=== PATIENT | female | born 1935 | race Caucasian/White ===

== ENCOUNTER → 2017-06-12 | Outpatient (CLI) | payer OTHER, MEDICARE ==
[~2017-06-12] VITALS: Ht 160 cm; Wt 55.6 kg
[~2017-06-12] MED LIST: ACCUPRIL; ACCUPRIL40 MG PO; ADULT LOW DOSE81 MG PO; AMBIEN 5 MG TABL5 M1 PO; AMLODIPINE BESY10 MG PO; ANAPROX DS550 MG PO; APAP500 PO; APAP650 PO; ARTIFICIAL TEA1 EACH OPHTHALMIC; ASACOL 400 MG400 M1 PO; ASACOL400 MG PO; ASPIR 8181 MG PO; BACLOFEN 10MG T10 M1 PO; BACLOFEN PO; BION TEARS OPHTHALMIC; BIOTIN1 GM PO; BIOTIN1 MG PO; BUDESONIDE EC3 MG PO; BYSTOLIC 5 MG5 M1 PO; BYSTOLIC10 MG PO; CALCIUM 600 +1 EAC1 PO; CALCIUM 600 +1 EAC5 PO; CALCIUM OYSTER500 MG PO; CENTRUM SILVER1 EAC5 PO; CEPACOL SORE T1 EAC7 PO; CILOSTAZOL 100100 M1 PO; CIPRO500 MG PO; CLARITIN10 MG PO; CLEAR EYES OP; CLOPIDOGREL75 MG PO; COLACE100 MG PO; COZAAR 50 MG TA50 M2 PO; CYMBALTA30 MG PO; DEPAKOTE250 MG PO; DIPHENOXYLATE/A1 TA1 PO; ERGOCALCIF50000 UNIT PO; EXFORGE PO; FIORICET 50-321 EACH PO; FLUCONAZOLE 10100 MG PO; HOME MEDICATION PO; HYDROCODON-ACE1 EAC7; HYDROCODONE-AP1 EAC6 PO; INDAPAMIDE1.25 MG PO; KETOPROFEN75 MG PO; LEVOTHYROXIN0.112 M1 PO; LOPERAMIDE 2 MG2 M1 PO; LOTEMAX OPHTHALMIC; LOTEMAX5 ML OPHTHALMIC; MACROBID 100 M100 M2 PO; MACRODANTIN100 MG PO; MELATONIN10 M1 PO; METAMUCIL FIBE3.4 GM PO; METAMUCIL0.52 GM PO; MINIPRIN81 MG PO; MIRALAX17 GM PO; MULTIVITAMIN W1 EAC5 PO; MULTIVITAMIN WITH MI PO; NITROFURANTOIN100 MG PO; NORCO 5-325 TA1 EACH PO; NYSTATIN100000 UNI PO; PAXIL10 MG; PEPCID20 MG PO; PEPTO-BISM262 MG/15 PO; PEPTO-BISMOL262 M1; PERCOCET 5-3251 EACH PO; PHENADOZ25 MG; PHENERGAN 25 MG25 M1 PO; PLAVIX 75 MG TA75 MG PO; PREDNISONE 5 MG5 M1 PO; PREMARIN42.5 GM VG; PRESERVISION A1 EACH PO; PREVALITE PACKET4 GM PO; PROBIOTIC1 EAC1 PO; PROTONIX40 M1 PO; PROTONIX40 M2 PO; PROZAC 10 MG CA10 M1 PO; PROZAC 10 MG CA10 MG PO; PROZAC20 MG PO; RESTASIS1 EACH OP; RESTASIS1 EACH OPHTHALMIC; SIMVASTATIN40 MG PO; SYNTHROID100 MCG PO; SYNTHROID75 MCG; SYNTHROID75 MCG PO; TEKTURNA300 MG PO; TENEX1 MG PO; TRAMADOL 50 MG50 MG PO; ULTRAM 50MG TAB50 MG PO; UNICOMPLEX M TA1 TA1 PO; VIBRAMYCIN 100100 MG PO; VITAMIN C1000 MG PO; VITAMIN C500 M1 PO; VOLTAREN GEL 1100 G2 TOP; ZANAFLEX2 M1 PO; ZANAFLEX4 MG PO; ZONEGRAN50 MG PO; ZONISAMIDE 100100 M1 PO; [UNRECOGNIZED DRUG - OTHER] OPHTHALMIC; [UNRECOGNIZED DRUG - OTHER] OPHTHALMIC; [UNRECOGNIZED DRUG - OTHER] PO; [UNRECOGNIZED DRUG - OTHER] PO
--- NOTE | ~2017-06-12 | HPC ---
[facility] [place] [address] [place] [address] PAIN MANAGEMENT CONSULTATION Name: REJI NEAL Room #: REG [facility] Rob.#: [id number] Admission: 06/12/17 Attend Phys: Adam Whitlock MD Discharge: Date of : 33 Report #: [id number] THIS REPORT FOR: //name// CC: Jayda Whitlock DATE OF SERVICE: 06/12/2017 Followup visit for recurring low back pain. The patient returns to the pain clinic today with her daughter, Gary Soto, one of our patients. I last saw the patient over a year ago. At that time, she presented with pain bilaterally in the area of the sacroiliac joint. She received bilateral injections, was sent to physical therapy and I have not seen her since. About 2 weeks ago, she was in her normal state of health. She was not using a walker. She was living in assisted living at a local facility. She turned to get something out of the refrigerator and had sudden onset of similar pain in the sacroiliac joint. Initially, it was on one side, but now it is similar on both with localized tenderness. She has classic findings of difficulty getting up and down out of a chair, bending forwards and straightening. She has no radicular symptoms whatsoever. She is unable to take nonsteroidal anti-inflammatory drugs and does have at her home hydrocodone 5/325, which she has been taking up to a maximum of 4 tablets per day. She has taken this before. She also takes two other centrally acting drugs one is Prozac 20 mg, which she is taking chronically and the third is tizanidine. There is no question that a combination of the tizanidine in addition to the hydrocodone is too sedating. Her daughter notices that she slurs her words and she is fearful that she may fall. Hydrocodone 5 mg although not terribly strong drug may also be too much for her and at the request of the daughter, I have encouraged the patient to use a half a tablet, which can be repeated at 4 hour intervals. She can combine that with a single 325 mg Tylenol tablet. We discussed the opioid risks, benefits and side effects. She does have some constipation. We talked about nonpharmacologic measures. A good portion of the discussion was also focused on exercise. While her daughter is a very avid cafeteria counter attendant, I think that we need to focus at this point on keeping it simple and having her mother develop a good steady program of walking. Anything that she does above that will be of benefit, but before she can do any of those other things she must become more mobile with walking. She is ____. PQRS: Blood pressure is 117/58, heart rate 76 and respirations 16. Her BMI is 21.7. She does have osteoarthritis involving hips and knees. She has significant vasculopathy and has had aortobifemoral in 2015. She does not smoke. She does not use alcohol. I do not provide opioids. They are provided [address] [address] PAIN MANAGEMENT CONSULTATION Name: REJI NEAL Room #: REG [facility] Gabriel#: [id number] Admission: 06/12/17 Attend Phys: Adam Whitlock MD Discharge: Date of : 33 Report #: [id number] by her primary care physician. We discussed the opioid risks. She is a fall risk at this time and uses a walker. Precautions were provided. All medications were reviewed and reconciled. PHYSICAL EXAMINATION: She has difficulty moving from sitting to standing position. It is hard for her to straighten up. She has very well localized pain overlying each sacroiliac joint in its upper portion. Pain is worse with bending and stretching. She has positive Shyanne. There is no radiculopathy. Her gait is slow and measured. She uses a walker for stability. IMPRESSION: 1. Bilateral sacroiliitis, sacroiliac joint pain. 2. Vasculopathy, status post aortobifemoral. 3. Hypertension on amlodipine. PLAN: 1. Bilateral sacroiliac joint injections under fluoroscopic guidance. 2. Recommendation regarding medication, discontinue tizanidine due to side effects, reduce hydrocodone to one half tablet q. 4 hours. Side effects of constipation were discussed and reviewed. Safeguarding of medication. 3. Daily walking program under guidance of her daughter. Additional exercise can be added as tolerated. PROCEDURE: Bilateral sacroiliac injection. She was taken to the fluoroscopic suite, placed prone and skin prepped with ChloraPrep. Skin anesthetized first on the right. Skin was anesthetized and 25-gauge needle advanced in the inferior posterior aspect of the joint through the capsule. Excellent arthrogram was obtained. It was then followed by 1 mL of 1% lidocaine mixed with 40 mg of triamcinolone. Needle was removed. C-arm was repositioned to the left. Again good positioning identified the joint and posteriorly entered so, although not quite as clearly as on the right. A 25-gauge needle was advanced into the joint. Partial arthrogram was obtained. I injected a portion of 0.25% bupivacaine and 20 mg of triamcinolone into the joint and then the additional 20 mg and two more mL of 0.25% bupivacaine was injected along the sacroiliac joint ligaments posteriorly. She tolerated the injections well. She was observed for a short time and discharged. No medications were ordered. I will see her back in a month as needed. <ELECTRONICALLY SIGNED> By: Adam Whitlock MD 07/12/17 1640 1139 0358 Adam Whitlock MD /nt
[2017-06-12 10:21] VITALS: BP 117/58
== END | disposition home or self-care (01) ==
LOC: PAIN 06:15 → EDBD 07:00
DX: M53.3 Sacrococcygeal disorders, not elsewhere classified (principal); M46.1 Sacroiliitis, not elsewhere classified; M31.8 Other specified necrotizing vasculopathies; I10 Essential (primary) hypertension; M17.0 Bilateral primary osteoarthritis of knee; M16.0 Bilateral primary osteoarthritis of hip; Z88.0 Allergy status to penicillin; Z88.6 Allergy status to analgesic agent; Z88.8 Allergy status to other drugs, medicaments and biological substances; Z79.899 Other long term (current) drug therapy; Z79.82 Long term (current) use of aspirin; Z79.891 Long term (current) use of opiate analgesic; Z98.890 Other specified postprocedural states

== ENCOUNTER → 2017-06-29 | Outpatient (CLI) | payer OTHER, MEDICARE ==
[~2017-06-29] VITALS: Ht 157.5 cm; Wt 56.5 kg
--- NOTE | ~2017-06-29 | HPC ---
[facility] [place] [address] [place] [address] PAIN MANAGEMENT CONSULTATION Name: REJI NEAL Room #: REG Delfina Rivas.#: [id number] Admission: 06/29/17 Attend Phys: Adam Whitlock MD Discharge: Date of : 33 Report #: [id number] THIS REPORT FOR: //name// CC: Jayda Whitlock DATE OF SERVICE: 06/29/2017 Followup visit for management of chronic low back pain. The patient was just seen in the pain clinic about 2 weeks ago. I had some phone calls with her daughter and a second daughter is with her today to discuss her medication management. I have also referred to the family a very excellent book, "Being Mortal" by Beltran Armenta. I think this book will provide important information to help the family understand what is important in helping their mother manage in her assisted living location. There is a lot of control issues going on here. Ultimately, it comes down to what medication works effectively and there has been some argument over mere 2.5 mg of hydrocodone. Today, it appears that they have come to resolve the issue that her mother does better within four hydrocodone 5 mg tablets. This seems like much ____ over nothing, but it is important I think for families from a psychological and emotional standpoint as well as physical one. Her mother has no significant side effects with a full tablet it appears and so we resolved to let her take the full tablet, which provides her with some control over medication. Today, we reviewed the CDC guidelines once again. All of the issues associated with the PQRS which were reviewed on 06/12/2017 are unchanged. I will not review them again here, they are on the chart from just 2 weeks ago. IMPRESSION: 1. Bilateral sacroiliitis with sacroiliac joint pain. 2. Vasculopathy status post aortobifemoral. 3. Hypertension. 4. Management of opioid medication under terms of written opioid agreement. PLAN: Medications were renewed with the new dosing and provided for 4 and 8 weeks. Her maximum daily dose will be 4 hydrocodone tablets 5 mg, which would be 20 MME. Her average dose will be 3 tablets or 15 mg of hydrocodone, 15 MME. See her in 3 months. <ELECTRONICALLY SIGNED> By: Adam Whitlock MD 07/12/17 1640 0958 1135 Adam Whitlock MD /nt
[2017-06-29 10:36] VITALS: BP 153/71
== END ==
LOC: PAIN 09:21
DX: M46.1 Sacroiliitis, not elsewhere classified (principal); M31.8 Other specified necrotizing vasculopathies; I10 Essential (primary) hypertension; F11.90 Opioid use, unspecified, uncomplicated

== ENCOUNTER → 2017-08-14 | Outpatient (CLI) | payer OTHER, MEDICARE ==
[~2017-08-14] VITALS: Ht 157.5 cm; Wt 56.4 kg
[~2017-08-14] MED LIST changes: -ARTIFICIAL TEA1 EACH OPHTHALMIC; +ARTIFICIAL TEAR15 M3; -BUDESONIDE EC3 MG PO; -COLACE100 MG PO; -ERGOCALCIF50000 UNIT PO; -HOME MEDICATION PO; -LOPERAMIDE 2 MG2 M1 PO; -MACROBID 100 M100 M2 PO; -MELATONIN10 M1 PO; -METAMUCIL FIBE3.4 GM PO; -MIRALAX17 GM PO; -NYSTATIN100000 UNI PO; -PEPCID20 MG PO; -PEPTO-BISM262 MG/15 PO; -PREDNISONE 5 MG5 M1 PO; -PREVALITE PACKET4 GM PO; -PROBIOTIC1 EAC1 PO; -SYNTHROID75 MCG PO; -VITAMIN C1000 MG PO; +VITAMIN C500 M1; -VITAMIN C500 M1 PO; -VOLTAREN GEL 1100 G2 TOP
--- NOTE | ~2017-08-14 | HPC ---
[facility] [address] [address] PAIN MANAGEMENT CONSULTATION Name: REJI NEAL Room #: REG [facility] M.R.#: [id number] Admission: 08/14/17 Attend Phys: Adam Whitlock MD Discharge: Date of : 33 Report #: [id number] THIS REPORT FOR: //name// CC: Jayda Whitlock DATE OF SERVICE: 08/14/2017 Followup visit for chronic pain, multiple generators. HISTORY OF PRESENT ILLNESS: The patient is here today with her daughter, Emily. She is here to review pain related to a recent fall and also to discuss her chronic low back pain. She was in Dr. Jimenez's office and fell off the table during the middle of a test. She landed on her left side. The fall sounds as though she went to the floor fairly gently, but she has complained of pain in her rib cage and over the left hip following that fall. She has had no evidence of fracture and no specific x-rays have taken. She remains ambulatory with only mild increases in pain. She has always had sacroiliac joint pain. Today, she complains of a bit more pain around the greater trochanter overlying the trochanteric bursa and into the hip. We have had many discussions about medication. Today, we focused on her maximum daily dose of hydrocodone, which would be 20 mg. She has the ability to take one half to one tablet of hydrocodone up to 4 times daily for a total of 20. There has been some challenge in figuring out the simple order because her schedule 2 medications at [facility] are released by the nursing staff. They were unable to split a tablet and this has led to some back and forth. We have settled on 5 mg 4 times daily at this time and there does not seem to be much disagreement between the patient and daughter today. We have reviewed the CDC guidelines, all issues associated with prescribing and they understand the importance of taking medication carefully and managing side effects. I think it is reasonable to use medication in this setting given our limited ability to control pain, otherwise. She has responded favorably to sacroiliac joint injections in the past; however, her pain today seems to be different, more involving the outer trochanter as well as some radiation into the gluteus muscle. PHYSICAL EXAMINATION: Blood pressure is 148/65, heart rate is 76, respirations 16, O2 sat 100%. She is able to move from a wheelchair independently to a standing position. She walks with unstable gait. Her daughter trailing her to make sure that she does not fall. Examination of the spine reveals no bruising. There is no bruising along the rib cage on the left. There is mild tenderness along the rib cage. There is tenderness along the greater trochanter. She has pain with hip internal and external rotation. There is some bruising in the right lamb overlying the tibia and a small skin tear, which is covered by a [address] [address] PAIN MANAGEMENT CONSULTATION Name: REJI NEAL Room #: REG [facility] Gabriel#: [id number] Admission: 08/14/17 Attend Phys: Adam Whitlock MD Discharge: Date of : 33 Report #: [id number] Band-Aid. IMPRESSION: 1. Bilateral chronic arthritic back pain with spondylosis and sacroiliitis. 2. Recent fall resulting in pain and tenderness overlying the trochanteric bursa. 3. Hypertension. 4. Arteriosclerosis with history of aortobifemoral graft. 5. Management of opioid medications under terms of written agreement. PLAN: 1. I renewed her medicines with a discussion about safeguarding and using the lowest effective dose managing side effects appropriately. 2. Trochanteric bursa injection. She was placed in the right lateral decubitus position, skin was prepped overlying the trochanter. A 25-gauge needle was used to infiltrate 4 mL of 0.5% bupivacaine and 40 mg of triamcinolone. She tolerated the procedure well. Pain was reduced at discharge. Follow up in 3 months for medication management. <ELECTRONICALLY SIGNED> By: Adam Whitlock MD 08/21/17 1408 1612 1627 Adam Whitlock MD /nt
[2017-08-14 12:57] VITALS: BP 148/65
== END | disposition home or self-care (01) ==
LOC: PAIN 07:21
DX: M70.62 Trochanteric bursitis, left hip (principal)

== ENCOUNTER → 2017-09-01 | Outpatient (CLI) | payer OTHER, MEDICARE ==
--- NOTE | ~2017-09-01 | HPC ---
[facility] [place] [address] [address] PAIN MANAGEMENT CONSULTATION Name: REJI NEAL Room #: REG [facility]..#: [id number] Admission: 09/01/17 Attend Phys: Kurt Rosas DO Discharge: Date of : 33 Report #: [id number] THIS REPORT FOR: //name// CC: Jayda Rosas DATE OF SERVICE: 09/01/2017 PROCEDURE: Lumbar epidural injection under fluoroscopy. The patient is a pleasant 82-year-old female typically treated by Dr. Adam Whitlock for ongoing axial back pain, history of trochanteric bursitis, lumbosacral spondylosis without myelopathy and lumbar radiculopathy. It has been managed with hydrocodone low dose 5 mg t.i.d. to q.i.d. Last visit, 08/14/2017, had trochanteric injection, left hip with excellent improvement of pain. She notes, however, she is having increasing radicular pain in right sciatic distribution. She denies antecedent trauma and overuse. Notes symptoms have been exacerbated with standing, walking and bending. Pain started in the groin has radiated down the lateral aspect of the leg into the foot. She rates it a 4 on VAS with sitting, 10/10 with walking. PHYSICAL EXAMINATION: Shows 82-year-old female, moderately thin with a BMI of about 22 kilograms per meter squared. Vital signs stable as noted in the EMR. Has significant decreased right leg strength to hip flexion, lower extremity extension does exacerbate pain. Positive straight leg raise at 30 degrees. ASSESSMENT: Symptomatic lumbar radiculopathy, clinical exam and history. RECOMMENDATION: Epidural injection under fluoroscopy today at L5-S1. Follow up with Dr. Whitlock for ongoing medical care in 3 weeks. PROCEDURE: Lumbar epidural injection under fluoroscopy. PROCEDURE NOTE: After both written and informed consent to include risk of spinal cord damage, increased pain, weakness and dural puncture, the patient was taken to the fluoroscopy suite, placed in the prone position. After sterile prep and drape, a skin wheal with lidocaine was raised. A 22-gauge epidural Tuohy needle was inserted in the midline at L5-S1 with good loss to resistance. Negative aspiration for cerebrospinal fluid or blood was noted. Then 1 mL of Omnipaque under biplanar fluoroscopy showed good spread within the epidural space. This was followed with 80 mg of triamcinolone plus 1 mL of 1.5% preservative-free Xylocaine, 0.5 mL Xylocaine was then injected to flush the [facility] [address] [place] [address] PAIN MANAGEMENT CONSULTATION Name: REJI NEAL [id number] Admission: 09/01/17 Attend Phys: Kurt Rosas DO Discharge: Date of : 33 Report #: [id number] needle; it was removed. The patient was monitored for an appropriate period of time and discharged in good and stable condition. <ELECTRONICALLY SIGNED> By: Kurt Rosas DO 09/02/17 0954 [id number] 2038 Kurt Rosas DO /nt
[2017-09-01 09:22] VITALS: BP 136/65
== END | disposition home or self-care (01) ==
LOC: PAIN 07:04
DX: M54.16 Radiculopathy, lumbar region (principal); M47.816 Spondylosis without myelopathy or radiculopathy, lumbar region; Z79.899 Other long term (current) drug therapy

== ENCOUNTER → 2017-09-25 | Outpatient (CLI) | payer OTHER, MEDICARE ==
[~2017-09-25] VITALS: Ht 157.5 cm; Wt 56.4 kg
[~2017-09-25] MED LIST changes: +ARTIFICIAL TEA1 EACH OPHTHALMIC; -ARTIFICIAL TEAR15 M3; +BUDESONIDE EC3 MG PO; +COLACE100 MG PO; +LOPERAMIDE 2 MG2 M1 PO; +MACROBID 100 M100 M2 PO; +MELATONIN10 M1 PO; +MIRALAX17 GM PO; +NYSTATIN100000 UNI PO; +PEPCID20 MG PO; +PEPTO-BISM262 MG/15 PO; +SYNTHROID75 MCG PO; -VITAMIN C500 M1; +VITAMIN C500 M1 PO
--- NOTE | ~2017-09-25 | HPC ---
[facility] [place] [address] [address] PAIN MANAGEMENT CONSULTATION Name: REJI NEAL [facility] [id number] Admission: 09/25/17 Attend Phys: Adam Whitlock MD Discharge: Date of : 33 Report #: [id number] THIS REPORT FOR: //name// CC: Jayda Whitlock DATE OF SERVICE: 09/25/2017 Followup visit for chronic back pain with radiculopathy. The patient returns to clinic today and her leg pain has improved after the epidural provided by Dr. Rosas. She still has pain across her lumbosacral segment that she scores as a 5 to 10. She has been taking medication. The goal is to lower her reliance on medicine. Pain is across her low back and does not radiate at this time. Pain is worse with back extension. She has marked spondylitic changes noted. She had a tooth pulled today. It was not infected. She is afebrile. MEDICATIONS: Reviewed and reconciled. She is not on a blood thinner. PHYSICAL EXAMINATION:' VITAL SIGNS: Blood pressure 137/58, heart rate 75 and respirations 20. She is 5 feet, 2 inches, 124 pounds and BMI 22.7. HEENT: Examination of the mouth reveals clean removal of tooth in the upper left. It appears to be an incisor. There is no redness or inflammation. MUSCULOSKELETAL: Examination of the low back reveals tenderness across the lumbosacral segment, worse with back extension and some pain also with flexion. Straight leg raising is performed without any pain in the leg today indicating improvement following her epidural injection. IMPRESSION: Lumbar spondylosis with facet arthropathy. RECOMMENDATIONS: I will proceed today with facet injections under fluoroscopic guidance, L4-L5 bilaterally, L5-S1. Potential risks and benefits have been discussed. I think the likelihood of infection risk is low given the clean removal of her tooth and will be outside of the spinal canal. PROCEDURE: The patient was taken to the fluoroscopic suite, placed prone, skin prepped with ChloraPrep. Skin anesthetized with 1% lidocaine; 25-gauge needles were advanced first on the right into the L4-L5 and L5-S1 facet capsule. No Isovue was used. After negative aspiration, I injected each needle with 1 mL of 0.5% bupivacaine mixed with 10 mg of triamcinolone. Tracy were removed. C-arm was moved to the left and mirror image injections were performed at L4-L5 and L5-S1 in a similar fashion. She tolerated the procedure [place] [address] PAIN MANAGEMENT CONSULTATION Name: REJI NEAL Room #: REG [facility].#: [id number] Admission: 09/25/17 Attend Phys: Adam Whitlock MD Discharge: Date of : 33 Report #: [id number] good condition in recovery room and discharged after a short stay. Follow up as needed. She had prescriptions written by Dr. Rosas at last visit. No prescriptions are necessary at this time. <ELECTRONICALLY SIGNED> By: Adam Whitlock MD 10/02/17 1711 1507 0557 Adam Whitlock MD /nt
[2017-09-25 14:28] VITALS: BP 137/58
== END | disposition home or self-care (01) ==
LOC: PAIN 07:26
DX: M47.816 Spondylosis without myelopathy or radiculopathy, lumbar region (principal); M46.96 Unspecified inflammatory spondylopathy, lumbar region; Z88.0 Allergy status to penicillin; Z88.2 Allergy status to sulfonamides; Z88.8 Allergy status to other drugs, medicaments and biological substances; Z79.899 Other long term (current) drug therapy; Z79.82 Long term (current) use of aspirin

== ENCOUNTER 2017-10-18 18:33 | Inpatient (IN) | payer OTHER, MEDICARE ==
[~2017-10-18] VITALS: Ht 157.5 cm; Wt 55.3 kg
[~2017-10-18 18:33] MED LIST changes: -COLACE100 MG PO; -LOPERAMIDE 2 MG2 M1 PO; -MACROBID 100 M100 M2 PO; -MELATONIN10 M1 PO; -MIRALAX17 GM PO; -PEPCID20 MG PO; -PEPTO-BISM262 MG/15 PO; -SYNTHROID75 MCG PO
[2017-10-18 18:34] VITALS: BP 141/69
[2017-10-18] MEDS ORDERED: MIRALAX17 GM PO (19:18)
[2017-10-18 20:00] LABS: URINE BILIRUBIN NEGATIVE (Negative); URINE BLOOD NEGATIVE (Negative); URINE CLARITY CLEAR; URINE COLOR YELLOW; URINE GLUCOSE-RANDOM* NEGATIVE (Negative); URINE KETONES NEGATIVE (Negative); URINE LEUKOCYTES-REFLEX NEGATIVE (Negative); URINE NITRITE-REFLEX NEGATIVE (Negative); URINE PROTEIN (DIPSTICK) TRACE (Negative); URINE UROBILINOGEN 0.2 E.U./dl (0.2-1.0)
[2017-10-18 21:31] LABS: ABSOLUTE NEUTROPHILS 8.2 thou/uL (1.4-8.2); BASOPHILS 0.6 % (0.0-2.0); EOSINOPHILS 1.1 % (0.0-3.0); HEMATOCRIT 33.6 % (37.0-47.0); HEMOGLOBIN 11.2 gm/dL (12.0-15.0); LYMPHOCYTES 18.9 % (24.0-44.0); MCH 32.7 pg (26.0-34.0); MCHC 33.4 g/dL (28.0-37.0); MCV 97.8 fL (80.0-100.0); MONOCYTES 10.2 % (1.0-8.0); PLATELET COUNT 353 thou/uL (150-400); POLYS 69.2 % (36.0-66.0); RBC 3.43 mil/uL (4.20-5.00); RDW 14.5 % (10.5-14.5); WBC 11.9 thou/uL (4.0-11.0)
[2017-10-18 21:38] LABS: CALCIUM 9.7 mg/dL (8.5-10.1); CREATININE 0.8 mg/dL (0.6-1.0); POTASSIUM 4.2 mmol/L (3.5-5.1)
[2017-10-18 22:00] VITALS: BP 138/62
[2017-10-18 22:16] VITALS: BP 166/63
[2017-10-18] MEDS ORDERED: SYNTHROID75 MCG PO (22:16)
[2017-10-18] MEDS ORDERED: PEPTO-BISM262 MG/15 PO (22:19)
[2017-10-18] MEDS ORDERED: PEPCID20 MG PO (22:20)
[2017-10-18] MEDS ORDERED: MELATONIN10 M1 PO (22:21)
[2017-10-18] MEDS ORDERED: MACROBID 100 M100 M2 PO (22:21)
[2017-10-18] MEDS ORDERED: LOPERAMIDE 2 MG2 M1 PO (22:22)
[2017-10-18] MEDS ORDERED: AMLODIPINE BESY10 MG PO (22:23)
[2017-10-19 05:50] LABS: HEMATOCRIT 32.4 % (37.0-47.0); HEMOGLOBIN 10.8 gm/dL (12.0-15.0); MCH 32.7 pg (26.0-34.0); MCHC 33.3 g/dL (28.0-37.0); MCV 98.1 fL (80.0-100.0); RBC 3.3 mil/uL (4.20-5.00); RDW 14.6 % (10.5-14.5); WBC 8.4 thou/uL (4.0-11.0)
[2017-10-19 05:59] LABS: CALCIUM 9.4 mg/dL (8.5-10.1); CREATININE 0.7 mg/dL (0.6-1.0); POTASSIUM 3.9 mmol/L (3.5-5.1)
[2017-10-19 06:46] VITALS: BP 136/62
[2017-10-19 07:53] VITALS: BP 132/59
[2017-10-19 19:18] VITALS: BP 140/68
[2017-10-20 03:50] VITALS: BP 141/58
[2017-10-20 07:39] VITALS: BP 137/55
[2017-10-20] MEDS ORDERED: COLACE100 MG PO (14:27)
[2017-10-20 14:55] VITALS: BP 137/55
[2017-10-20 15:53] VITALS: BP 135/52
== END 2017-10-20 18:24 | disposition home health service (06) | DRG 516 ==
LOC: ER 18:33 → EROBS 20:34 → 4W 20:34 → ENTRNSPT 10-20 16:06 → 4W 10-20 18:24
PROVIDERS: Nurse Practitioner Family; Physician Assistant
PROC: 0QS03ZZ Reposition Lumbar Vertebra, Percutaneous Approach (ICD-10-PCS; principal; 2017-10-19)
PROC: 0QU03JZ Supplement Lumbar Vertebra with Synthetic Substitute, Percutaneous Approach (ICD-10-PCS; principal; 2017-10-19)
DX: M48.56XA Collapsed vertebra, not elsewhere classified, lumbar region, initial encounter for fracture (principal); E87.1 Hypo-osmolality and hyponatremia; G89.29 Other chronic pain; M54.5 Low back pain; M25.552 Pain in left hip; M25.551 Pain in right hip; M19.90 Unspecified osteoarthritis, unspecified site; I25.10 Atherosclerotic heart disease of native coronary artery without angina pectoris; E03.9 Hypothyroidism, unspecified; H40.9 Unspecified glaucoma; G43.909 Migraine, unspecified, not intractable, without status migrainosus; K59.00 Constipation, unspecified; F32.9 Major depressive disorder, single episode, unspecified; I73.9 Peripheral vascular disease, unspecified; M85.80 Other specified disorders of bone density and structure, unspecified site; I65.29 Occlusion and stenosis of unspecified carotid artery; Z79.891 Long term (current) use of opiate analgesic; Z88.6 Allergy status to analgesic agent; Z88.0 Allergy status to penicillin; Z88.2 Allergy status to sulfonamides; Z88.8 Allergy status to other drugs, medicaments and biological substances; Z90.711 Acquired absence of uterus with remaining cervical stump; Z95.5 Presence of coronary angioplasty implant and graft; Z86.73 Personal history of transient ischemic attack (TIA), and cerebral infarction without residual deficits; Z79.82 Long term (current) use of aspirin; Z79.899 Other long term (current) drug therapy
CPT/HCPCS: 10040

== ENCOUNTER → 2017-11-02 | Outpatient (CLI) | payer OTHER, MEDICARE ==
[~2017-11-02] MED LIST changes: +COLACE100 MG PO; +LOPERAMIDE 2 MG2 M1 PO; +MACROBID 100 M100 M2 PO; +MELATONIN10 M1 PO; +MIRALAX17 GM PO; +PEPCID20 MG PO; +PEPTO-BISM262 MG/15 PO; +SYNTHROID75 MCG PO
== END ==
LOC: MRI 10:48
DX: M47.896 Other spondylosis, lumbar region (principal); M48.061 Spinal stenosis, lumbar region without neurogenic claudication; M51.27 Other intervertebral disc displacement, lumbosacral region

== ENCOUNTER → 2017-12-12 | Outpatient (CLI) | payer OTHER, MEDICARE | LOC: MRI 14:04 | DX: S32.010A Wedge compression fracture of first lumbar vertebra, initial encounter for closed fracture (principal); S32.020A Wedge compression fracture of second lumbar vertebra, initial encounter for closed fracture; S32.040A Wedge compression fracture of fourth lumbar vertebra, initial encounter for closed fracture; S32.050A Wedge compression fracture of fifth lumbar vertebra, initial encounter for closed fracture; X58.XXXA Exposure to other specified factors, initial encounter; M47.816 Spondylosis without myelopathy or radiculopathy, lumbar region; Y93.89 Activity, other specified; Y92.89 Other specified places as the place of occurrence of the external cause; Y99.8 Other external cause status; Z98.890 Other specified postprocedural states ==

== ENCOUNTER → 2018-01-01 | Outpatient (CLI) | payer OTHER, MEDICARE | LOC: MRI 07:26 | DX: M51.26 Other intervertebral disc displacement, lumbar region (principal); Z98.890 Other specified postprocedural states ==

== ENCOUNTER 2019-03-02 13:07 | Emergency (ER) | payer OTHER, MEDICARE ==
[~2019-03-02] VITALS: Ht 160 cm; Wt 54.4 kg
[~2019-03-02 13:07] MED LIST changes: +ERGOCALCIF50000 UNIT PO; +HOME MEDICATION PO; +METAMUCIL FIBE3.4 GM PO; +PREDNISONE 5 MG5 M1 PO; +PREVALITE PACKET4 GM PO; +PROBIOTIC1 EAC1 PO; +VITAMIN C1000 MG PO; +VOLTAREN GEL 1100 G2 TOP
[2019-03-02] MEDS ORDERED: BACLOFEN5 MG PO (15:08)
[2019-03-02 16:14] VITALS: BP 156/74
[2019-03-18] MEDS ORDERED: MAGNESIUM400 MG PO (08:24)
[2019-03-18] MEDS ORDERED: CILOSTAZOL50 MG PO (08:25)
[2019-03-18] MEDS ORDERED: BIOTIN1000 MCG PO (08:26)
[2019-03-18] MEDS ORDERED: DURAGESIC1 EAC2 (08:28)
[2019-03-29] MEDS ORDERED: AMLODIPINE BESY10 MG PO (11:10)
[2019-03-29] MEDS ORDERED: ACIDOPHILUS LA1 EAC1 PO (11:11)
[2019-03-29] MEDS ORDERED: DICLOFENAC SOD50 MG PO (11:12)
[2019-03-29] MEDS ORDERED: DRIZALMA SPRINK60 MG PO (11:13)
[2019-03-29] MEDS ORDERED: LIDOCAINE PAIN1 EACH TOP (11:15)
[2019-03-29] MEDS ORDERED: OMEPRAZOLE 20 M20 M1 PO (11:16)
== END 2019-03-02 16:15 | disposition home or self-care (01) ==
LOC: ER 13:07
DX: S39.012A Strain of muscle, fascia and tendon of lower back, initial encounter (principal); I10 Essential (primary) hypertension; I25.10 Atherosclerotic heart disease of native coronary artery without angina pectoris; G43.909 Migraine, unspecified, not intractable, without status migrainosus; E78.00 Pure hypercholesterolemia, unspecified; E03.9 Hypothyroidism, unspecified; G89.29 Other chronic pain; Z90.711 Acquired absence of uterus with remaining cervical stump; Z86.2 Personal history of diseases of the blood and blood-forming organs and certain disorders involving the immune mechanism; Z88.0 Allergy status to penicillin; Z88.2 Allergy status to sulfonamides; Z88.5 Allergy status to narcotic agent; Z88.8 Allergy status to other drugs, medicaments and biological substances; X50.0XXA Overexertion from strenuous movement or load, initial encounter; Y92.89 Other specified places as the place of occurrence of the external cause; Y93.E2 Activity, laundry; Y99.8 Other external cause status

== ENCOUNTER → 2019-03-11 | Outpatient (CLI) | payer OTHER, MEDICARE ==
[~2019-03-11] MED LIST changes: +ACIDOPHILUS LA1 EAC1 PO; +BACLOFEN5 MG PO; +BIOTIN1000 MCG PO; +CILOSTAZOL50 MG PO; +DICLOFENAC SOD50 MG PO; +DRIZALMA SPRINK60 MG PO; +DURAGESIC1 EAC2; +LIDOCAINE PAIN1 EACH TOP; +MAGNESIUM400 MG PO; +OMEPRAZOLE 20 M20 M1 PO
== END ==
LOC: CAT 13:09
DX: M43.8X4 Other specified deforming dorsopathies, thoracic region (principal); M25.78 Osteophyte, vertebrae; M48.04 Spinal stenosis, thoracic region; M51.24 Other intervertebral disc displacement, thoracic region; N20.0 Calculus of kidney

== ENCOUNTER → 2019-03-13 | Outpatient (CLI) | payer OTHER, MEDICARE | LOC: MRI 12:28 | DX: M48.55XA Collapsed vertebra, not elsewhere classified, thoracolumbar region, initial encounter for fracture (principal); M51.25 Other intervertebral disc displacement, thoracolumbar region ==

== ENCOUNTER → 2019-03-18 | Outpatient (CLI) | payer OTHER, MEDICARE ==
[~2019-03-18] VITALS: Ht 157.5 cm; Wt 47.6 kg
[~2019-03-18] MED LIST changes: +DURAGESIC1 EAC2 TOP; +REFRESH CLASSI1 EACH EA. EYE; +XIIDRA1 EACH EA. EYE
[2019-03-18 08:02] VITALS: BP 141/64
[2019-03-18 08:11] LABS: HEMATOCRIT 36.8 % (37.0-47.0); HEMOGLOBIN 12.2 gm/dL (12.0-15.0); MCH 32.8 pg (26.0-34.0); MCHC 33.2 g/dL (28.0-37.0); MCV 98.8 fL (80.0-100.0); RBC 3.73 mil/uL (4.20-5.00); RDW 15.5 % (10.5-14.5); WBC 11.5 thou/uL (4.0-11.0)
== END | disposition home or self-care (01) ==
LOC: EDBD 07:31 → CATH 07:31
PROVIDERS: Nuclear Medicine Nuclear Cardiology
DX: M54.9 Dorsalgia, unspecified (principal); M80.08XA Age-related osteoporosis with current pathological fracture, vertebra(e), initial encounter for fracture; I10 Essential (primary) hypertension; I25.10 Atherosclerotic heart disease of native coronary artery without angina pectoris; E03.9 Hypothyroidism, unspecified; I73.9 Peripheral vascular disease, unspecified; G43.909 Migraine, unspecified, not intractable, without status migrainosus; H40.9 Unspecified glaucoma; E78.00 Pure hypercholesterolemia, unspecified; M19.90 Unspecified osteoarthritis, unspecified site; D64.9 Anemia, unspecified; M85.80 Other specified disorders of bone density and structure, unspecified site; Z98.890 Other specified postprocedural states; Z79.899 Other long term (current) drug therapy; Z90.711 Acquired absence of uterus with remaining cervical stump; Z87.891 Personal history of nicotine dependence; Z86.73 Personal history of transient ischemic attack (TIA), and cerebral infarction without residual deficits

== ENCOUNTER → 2019-03-27 | Outpatient (CLI) | payer OTHER, MEDICARE ==
[~2019-03-27] MED LIST changes: -DURAGESIC1 EAC2 TOP; -REFRESH CLASSI1 EACH EA. EYE; -XIIDRA1 EACH EA. EYE
== END ==
LOC: MRI 08:22
DX: M43.8X4 Other specified deforming dorsopathies, thoracic region (principal); M51.24 Other intervertebral disc displacement, thoracic region; Z98.890 Other specified postprocedural states; Z88.8 Allergy status to other drugs, medicaments and biological substances; Z88.0 Allergy status to penicillin

== ENCOUNTER → 2019-03-29 | Outpatient (CLI) | payer OTHER, MEDICARE ==
[~2019-03-29] VITALS: Ht 157.5 cm; Wt 47.6 kg
[~2019-03-29] MED LIST changes: +REFRESH CLASSI1 EACH EA. EYE; +XIIDRA1 EACH EA. EYE
[2019-03-29 10:37] VITALS: BP 139/74
[2019-03-29 11:14] LABS: CALCIUM 8.4 mg/dL (8.5-10.1); CREATININE 0.7 mg/dL (0.6-1.0); POTASSIUM 3.6 mmol/L (3.5-5.1)
[2019-03-29 12:50] VITALS: BP 139/74
== END | disposition home or self-care (01) ==
LOC: CATH 09:42
PROVIDERS: Nuclear Medicine Nuclear Cardiology
DX: M54.9 Dorsalgia, unspecified (principal); M80.08XA Age-related osteoporosis with current pathological fracture, vertebra(e), initial encounter for fracture; I10 Essential (primary) hypertension; E78.5 Hyperlipidemia, unspecified; I73.9 Peripheral vascular disease, unspecified; K21.9 Gastro-esophageal reflux disease without esophagitis; H40.9 Unspecified glaucoma; I25.10 Atherosclerotic heart disease of native coronary artery without angina pectoris; E03.9 Hypothyroidism, unspecified; E78.00 Pure hypercholesterolemia, unspecified; D64.9 Anemia, unspecified; M19.90 Unspecified osteoarthritis, unspecified site; M85.80 Other specified disorders of bone density and structure, unspecified site; F32.89 Other specified depressive episodes; Z98.890 Other specified postprocedural states; Z79.899 Other long term (current) drug therapy; Z90.711 Acquired absence of uterus with remaining cervical stump; Z86.73 Personal history of transient ischemic attack (TIA), and cerebral infarction without residual deficits; Z87.891 Personal history of nicotine dependence; Z82.49 Family history of ischemic heart disease and other diseases of the circulatory system; Z88.0 Allergy status to penicillin; Z88.2 Allergy status to sulfonamides; Z88.8 Allergy status to other drugs, medicaments and biological substances

== ENCOUNTER → 2019-04-10 | Outpatient (CLI) | payer OTHER, MEDICARE ==
[~2019-04-10] VITALS: Ht 157.5 cm; Wt 47.6 kg
[2019-04-10 10:41] VITALS: BP 134/66
== END | disposition home or self-care (01) ==
LOC: SPEC 10:14
DX: M54.9 Dorsalgia, unspecified (principal); M80.08XA Age-related osteoporosis with current pathological fracture, vertebra(e), initial encounter for fracture; I10 Essential (primary) hypertension; I25.10 Atherosclerotic heart disease of native coronary artery without angina pectoris; E78.5 Hyperlipidemia, unspecified; I73.9 Peripheral vascular disease, unspecified; E03.9 Hypothyroidism, unspecified; E78.00 Pure hypercholesterolemia, unspecified; K21.9 Gastro-esophageal reflux disease without esophagitis; H40.9 Unspecified glaucoma; M85.80 Other specified disorders of bone density and structure, unspecified site; F32.89 Other specified depressive episodes; M19.90 Unspecified osteoarthritis, unspecified site; G47.33 Obstructive sleep apnea (adult) (pediatric); Z98.890 Other specified postprocedural states; Z79.899 Other long term (current) drug therapy; Z86.73 Personal history of transient ischemic attack (TIA), and cerebral infarction without residual deficits; Z82.49 Family history of ischemic heart disease and other diseases of the circulatory system; Z87.19 Personal history of other diseases of the digestive system; Z90.711 Acquired absence of uterus with remaining cervical stump

== ENCOUNTER → 2019-04-29 | Outpatient (CLI) | payer OTHER, MEDICARE ==
[~2019-04-29] MED LIST changes: +BENEFIBER1 EAC1 PO; +CALTRATE+D3 PL1 EACH PO; +DRIZALMA SPRINK30 MG PO; +DURAGESIC1 EAC2 TOP; +MELOXICAM7.5 MG PO; +OMEPRAZOLE20 M2 PO; +PEPTO-BISMOL262 M1 PO; +REFRESH PLUS1 EACH EA. EYE; +SENNA8.8 MG/5 M PO; +ZUPLENZ4 MG PO
--- NOTE | ~2019-04-29 | HPC ---
[facility] [place] [address] [address] [place] [address] PAIN MANAGEMENT CONSULTATION Name: REJI NEAL Room #: REG [facility] M..#: [id number] Admission: 04/29/19 Attend Phys: Adam Whitlock MD Discharge: Date of : 33 Report #: [id number] THIS REPORT FOR: //name// CC: Jayda Whitlock DATE OF SERVICE: 04/29/2019 CHIEF COMPLAINT: Diffuse thoracic pain. The patient is a kai 83-year-old who is here today with her son. She has severe osteoporosis and has suffered many compression fractures over the course of the last few years. She has been seeing Red Hernandez who has performed by her count 9 separate kyphoplasties !. She still has back pain. She has a kyphosis and there is an area where she has radiating pain of a radicular nature through the torso following a distribution about T8 through T12. Most of her pain, however, she reports is in her back. She has been treated with both oral opioids, hydrocodone 5/325 one to two a day and fentanyl patch. For a while, she was taking both one as a baseline and the other as breakthrough, but more recently has been taken off the hydrocodone due to family concerns of increasing confusion. She remains on the fentanyl patch 12 mcg, which her son says works well and does not seem to cause side effects. She has a history of loose stools and with the 12 mcg patch she has very little constipation. She also does not seem to have any cognitive issues. Dr. Hawk prescribes a medication for her at her facility, although she has brought me from the facility a packet to fill out for additional medication recommendations and orders. She has a long and complicated past medical history. It feels up nearly 3/4 page on her past medical and surgical history. Please refer to the electronic medical record. Medications were reviewed and reconciled. PQRS REVIEW: 1. She does have diffuse spondylosis as a result of her kyphosis. 2. BMI 22. 3. Blood pressure 137/50. 4. Pain intensity 09/21. 5. She is a fall risk. She uses a walker. 6. No blood thinning medications at this time. 7. History of hypertension, under treatment. 8. She denies an opioid agreement with our clinic and we do not prescribe her [address] [address] PAIN MANAGEMENT CONSULTATION Name: REJI NEAL Room #: REG [facility] Rob.#: [id number] Admission: 04/29/19 Attend Phys: Adam Whitlock MD Discharge: Date of : 33 Report #: [id number] medicines currently. 9. She denies use of tobacco and alcohol. PHYSICAL EXAMINATION: GENERAL: She is a pleasant, soft spoken, 83-year-old. She shows no signs of dementia today. She moves independently from a chair to a standing position, but is unstable without a walker. She was able to take multiple steps to the clinic turn and return without weakness. BACK: Examination of the spine reveals marked thoracic kyphosis. She has tenderness really throughout the thoracic kyphotic area and along the paravertebral muscles where she has myofascial pain as well. She has localized tenderness in one spot just about her bra strap, which would correlate roughly with about T8. She also has a radiating pain that radiates into the abdomen following a T8 through about T12 distribution. The pain is worse with standing and walking and may be radicular in nature. ABDOMEN: Soft. Bowel sounds are distant. Generalized weakness is noted bilaterally in the lower extremities. Deep tendon reflexes are diminished bilaterally at knees and ankles. IMPRESSION: 1. Diffuse spondylitic low back pain with kyphosis. Multiple prior compression fractures treated with kyphoplasty. 2. Chronic opioid use. RECOMMENDATIONS: We can consider an epidural injection, although I would be very cautious about giving her much steroid with her osteoporosis. We will probably get by with 20-40 mg versus her usual 80 mg. Spread of local anesthetic and oftentimes provide some relief that maybe lasting and beneficial to the patient. It can be performed with a reasonable safety, I believe. We will use that plan as a backup and today, I have recommended that we try and increase her fentanyl from 12 to 25 mcg and see how she does. Followup visit is scheduled in 3-4 weeks for a possible thoracic epidural injection depending on her response to the higher dose of pain medicine. I have asked for the recommendation to be cleared with her primary care physician, Dr. Jayda Hawk. By: 1802 0140 Adam Whitlock MD /nt
--- NOTE | 2019-04-29 14:08 | NUR ---
Pain Clinic Assessment: 1. History of Osteoarthritis: History of Rheumatoid Arthritis: 2. Height: ft. in. cm. Weight: lb. oz. kg. Patient's BMI: 3. Vital Signs: BP: Pulse: Resp: Temp: 02 Sat: ECG Mon: 4. Pain Intensity: 5 5. Fall Risk: Dizziness: Needs help standing or walking: Fallen in the last 3 months: Fall risk comments: WALKS WITH WALKER, FELL 2 MONTHS AGO AT [employer]ICE 6. Patient on Blood Thinner: None 7. History of Hypertension: Y 8. Opioid Therapy greater than 6 weeks: N Opiate Contract Signed: 9. Risk Assessment Tool Provided: 10. Functional Assessment Tool: 11. Recreational Drug Use: Never Drug Type: Tobacco Use: Former Smoker Tobacco Type: Amount or Packs/day: How Many Years: Alcohol Use: No Frequency: Special Occasions Quant:
== END ==
LOC: EDBD 07:29 → PAIN 07:29
DX: M54.5 Low back pain (principal); M47.816 Spondylosis without myelopathy or radiculopathy, lumbar region; F11.20 Opioid dependence, uncomplicated

== ENCOUNTER → 2019-05-03 | Outpatient (CLI) | payer OTHER, MEDICARE ==
[~2019-05-03] VITALS: Ht 157.5 cm; Wt 45.4 kg
[2019-05-03 14:56] VITALS: BP 140/66
--- NOTE | 2019-05-03 17:06 | NUR ---
recieved pt at 1645 from IR. Bandaid dressing dry and intact to back. Pt still sedated. VSS, Daughter in law at bedside.
== END | disposition home or self-care (01) ==
LOC: SPEC 13:01 → EDBD 13:01
DX: M54.9 Dorsalgia, unspecified (principal); M80.08XA Age-related osteoporosis with current pathological fracture, vertebra(e), initial encounter for fracture; I10 Essential (primary) hypertension; E78.5 Hyperlipidemia, unspecified; I73.9 Peripheral vascular disease, unspecified; K21.9 Gastro-esophageal reflux disease without esophagitis; F32.89 Other specified depressive episodes; I25.10 Atherosclerotic heart disease of native coronary artery without angina pectoris; D64.9 Anemia, unspecified; H40.9 Unspecified glaucoma; M19.90 Unspecified osteoarthritis, unspecified site; E78.00 Pure hypercholesterolemia, unspecified; M85.80 Other specified disorders of bone density and structure, unspecified site; E03.9 Hypothyroidism, unspecified; G89.29 Other chronic pain; Z98.890 Other specified postprocedural states; Z86.73 Personal history of transient ischemic attack (TIA), and cerebral infarction without residual deficits; Z90.711 Acquired absence of uterus with remaining cervical stump; Z82.49 Family history of ischemic heart disease and other diseases of the circulatory system; Z87.19 Personal history of other diseases of the digestive system; Z79.899 Other long term (current) drug therapy; Z87.891 Personal history of nicotine dependence; Z88.0 Allergy status to penicillin; Z88.2 Allergy status to sulfonamides; Z88.8 Allergy status to other drugs, medicaments and biological substances

== ENCOUNTER → 2019-05-20 | Outpatient (CLI) | payer OTHER, MEDICARE ==
[~2019-05-20] MED LIST changes: +FENTANYL1 EACH TRANSDERM
--- NOTE | ~2019-05-20 | HPC ---
[facility] [place] [address] PAIN MANAGEMENT CONSULTATION Name: REJI NEAL Room #: REG [facility] M..#: [id number] Admission: 05/20/19 Attend Phys: Adam Whitlock MD Discharge: Date of : 31 Report #: [id number] THIS REPORT FOR: //name// CC: Jayda Whitlock DATE OF SERVICE: 05/20/2019 CHIEF COMPLAINT: Chronic back pain, status post multiple compression fractures, all treated by kyphoplasty and today left groin pain. The patient is here today with her son who is quite attentive. Since I saw her in April, she has had even more kyphoplasties now numbering, I think, 12 by my count. These included kyphoplasties throughout the lumbar region and also T5 through T12, all performed by Dr. Hernandez here at [facility]. Her back continues to bother her, but her biggest complaint today is her left groin. PQRS: Positive for a BMI of 22.7, blood pressure 137/58, heart rate 75, respirations 20, O2 sat 97. Pain intensity is a 5/10. She is a fall risk, walks with a walker and has fallen within the last 6 months. She needs assistance. She is on no blood thinning medications, but is treated by her trimmer climber for hypertension. She does not have an opioid agreement signed with our clinic and Dr. Hawk has been providing her medication. She denies use of tobacco or alcohol. PHYSICAL EXAMINATION: As noted. I did have her stand and take a few steps in my office. She is very frail and her steps are very short and she appears to be a significant fall risk. She is limited in any sort of forward flexion, extension, rotational movements of her spine. She has tenderness across the lumbosacral segment. In a sitting position, she has negative straight leg raising discomfort. She has no pain actually with internal or external rotation as well as hip flexion. There is mild tenderness throughout the groin. IMPRESSION: 1. 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 2. Chronic opioid use. She is currently at 25 mcg of fentanyl per day. We increased her to that dose at her last visit on 05/01 and she has tolerated that adjustment without significant side effects. A small improvement in pain was noted. [address] [address] PAIN MANAGEMENT CONSULTATION Name: REJI NEAL Room #: REG [facility] Gabriel#: [id number] Admission: 05/20/19 Attend Phys: Adam Whitlock MD Discharge: Date of : 31 Report #: [id number] The patient was given hydrocodone 5/[address] Hawk as a breakthrough medicine. Her son tells me that she was not able to tolerate due to nausea. It is not much in the way of an additional opioid compared to her baseline fentanyl, but is still poorly tolerated, so we have decided to have her hold off on breakthrough medicine at this time. She nonetheless would like additional pain medication and I think the safest thing to do is use the medicine that we are familiar with fentanyl in a patch form. I can increase her to 37 mcg patch. These are available on a generic basis. She lives currently in a facility, so an order was written for the facility as well as sent electronically to her pharmacy at [facility]. We discussed all the side effects of the opioids and precautions necessary. Unfortunately, I do not see her as a good candidate for any injections. She already has significant osteoporosis and the use of steroids, I do not think will be of help. I am not sure exactly where the pain in her groin is coming from and my suspicion is that it is referred pain since it occurred shortly after more recent compression fractures and kyphoplasties and does not appear to be a primary hip problem. Follow up with Dr. Hawk. This will serve as a communication with her office. We are carefully monitoring her use of medications through the prescription drug monitoring program. Her contract will remain with Dr. Hawk. By: [id number] Adam Whitlock MD /lucero
[2019-05-20 10:14] VITALS: BP 114/72
--- NOTE | 2019-05-20 10:26 | NUR ---
Pain Clinic Assessment: 1. History of Osteoarthritis: SEVERE SPINE History of Rheumatoid Arthritis: Not Applicable 2. Height: ft. in. cm. Weight: lb. oz. kg. Patient's BMI: 3. Vital Signs: BP: 114/72 Pulse: 100 Resp: 18 Temp: 02 Sat: 98 ECG Mon: 4. Pain Intensity: 5-6 5. Fall Risk: Dizziness: Y Needs help standing or walking: Y Fallen in the last 3 months: N Fall risk comments: WALKS WITH WALKER, FELL 2 MONTHS AGO AT [employer] 6. Patient on Blood Thinner: None 7. History of Hypertension: Y 8. Opioid Therapy greater than 6 weeks: N Opiate Contract Signed: 9. Risk Assessment Tool Provided: 10. Functional Assessment Tool: 11. Recreational Drug Use: Never Drug Type: Tobacco Use: Former Smoker Tobacco Type: Amount or Packs/day: How Many Years: Alcohol Use: No Frequency: Quant:
== END ==
LOC: PAIN 06:52
DX: M54.5 Low back pain (principal); F11.20 Opioid dependence, uncomplicated